=== PATIENT | female | born 1960 | race Two or more races ===

== ENCOUNTER 2020-09-20 09:13 | Outpatient (CLI) | payer OTHER | END 2020-09-20 09:25 | disposition home or self-care (01) | LOC: SONOGRAMA 09:13 | PROVIDERS: ATTEND Obstetrics & Gynecology Maternal & Fetal Medicine | DX: N88.8 Other specified noninflammatory disorders of cervix uteri (principal); N84.0 Polyp of corpus uteri; N95.0 Postmenopausal bleeding; M48.02 Spinal stenosis, cervical region ==